=== PATIENT | female | born 1960 | race Hispanic/Latino ===

== ENCOUNTER 2017-08-16 23:26 | Observation (INO) | payer SELFPAY ==
--- NOTE | 2017-08-16 23:59 | CT ---
NONCONTRAST HEAD CT: History: Left sided facial droop, headache starting two hours ago. Comparison: None. Technique: Noncontrast head CT is performed from skull base to skull vertex. FINDINGS: No parenchymal hemorrhage. No extraaxial hematoma. No midline shift. Basilar cisterns are patent. Br ain volume age appropriate. Cortical gannon white matter differentiation is preserved. Ventricles and sulci are patent and symmetric. Calvarium is intact. Adequate aeration of the sinuses and mastoid air cells. IMPRESSION: No acute intracranial process. Results of study discussed with Kaycee Gibbons 08-16-17 at 11:48 p.m. POS: [facility]
[2017-08-17 00:16] LABS: Hematocrit 44.1 % (36.0-47.0); Mean Platelet Volume 7.4 fL (7.4-10.4); Red Blood Cell (RBC) Count 4.59 mill/uL (4.20-5.40); White Blood Cell (WBC) Count 7.1 thou/uL (4.8-10.8)
[2017-08-17 00:18] LABS: PTT 26.6 SEC (22.9-36.1); Prothrombin Time 13.2 SEC (12.0-14.7)
[2017-08-17 00:34] LABS: ALT (SGPT) 285 U/L (8-55); AST (SGOT) 150 U/L (5-34); Alkaline Phosphatase 92 U/L (40-150); Anion Gap 18 mmol/L (10-20); BUN (Urea Nitrogen) 7 mg/dL (9.8-20.1); Bilirubin, Total 0.3 mg/dL (0.2-1.2); CK (CPK) 99 U/L (29-168); Calc. Creatinine Clearance 0 mL/min (70-130); Calcium 9.4 mg/dL (7.8-10.44); Carbon Dioxide 21 mmol/L (22-29); Chloride 108 mmol/L (98-107); Estimated GFR-MDRD 88; Globulin 3.7 g/dL (2.4-3.5)
[2017-08-17 00:37] LABS: Troponin I Less than 0.010 ng/mL (< 0.028)
[2017-08-17 00:40] LABS: Neutrophil 27 % (42-75); Reactive Lymphocytes 3 % (0-10)
[2017-08-17] MEDS ORDERED: Aspirin 81 mg Enteric Coated Tablet ONE (00:41)
[2017-08-17 01:22] LABS: Bilirubin Negative (Negative); Blood, Urine Negative (Negative); Glucose, Urine (Dipstick) Negative (Negative); Ketone, Urine Negative (Negative); Nitrite Negative (Negative); Protein, Urine (Dipstick) Negative (Neg-Trace); Urobilinogen 0.2 mg/dL (0.2-1.0)
[2017-08-17 02:09] LABS: Amphetamine Not Detected (NotDetected); Methadone Not Detected (NotDetected); Methamphetamine Not Detected (NotDetected)
[2017-08-17 03:21] LABS: Troponin I 0.017 ng/mL (< 0.028)
[2017-08-17] MEDS ORDERED: Sodium Chloride 0.9% 1,000 ML IV SCH (03:43)
[2017-08-17] MEDS ORDERED: Ondansetron HCl/PF 4 MG/2 ML Vial IVP PRN ×2 (03:43→04:44)
[2017-08-17] MEDS ORDERED: Ondansetron ODT 4 MG TAB SL PRN (03:43)
[2017-08-17] MEDS ORDERED: Acetaminophen 325 MG TAB PO PRN (03:43)
[2017-08-17 03:50] VITALS: BMI 32.3
[2017-08-17] MEDS ORDERED: cloNIDine 0.1 MG TAB PO PRN (04:44)
[2017-08-17] MEDS ORDERED: Ondansetron ODT 4 MG TAB PO PRN (04:44)
[2017-08-17] MEDS ORDERED: Ketorolac Tromethamine 30 MG/ML VIAL IVP PRN (04:44)
[2017-08-17] MEDS ORDERED: Lorazepam 1 MG TAB PO PRN (04:44)
[2017-08-17] MEDS ORDERED: hydrALAZINE 20 MG/ML VIAL SLOW IVP PRN (04:44)
[2017-08-17] MEDS: Sodium Chloride 0.9% 1,000 ML IV SCH ×3 (05:20→23:10)
--- NOTE | 2017-08-17 05:35 | HP ---
DATE OF ADMISSION: 08/17/2017 PRIMARY CARE PHYSICIAN: Asha sousa. CHIEF COMPLAINT: Left neck pain and right facial numbness. HISTORY OF PRESENT ILLNESS: This is a 56-year-old female who presents to [facility], complaining of several day history of left neck and scalp pain. The patient state s the symptoms began approximately a week ago, persistent shooting pain into her scalp on the left s january above her ear. The patient has tried [id number]-tlm-[id number] remedies without relief. The patient als o complains of feeling her right facial numbness and feels like her right eye is rolling around in h er head uncontrollably. The patient denies any recent trauma, injury, fever, chills, or travel hist ory. The patient denies any difficulty with speech, swallowing, or ambulating. The patient states her mother had some similar type symptoms, but is unclear and unsure of what the diagnosis of her mo ther was. The patient denies any chronic medical conditions, any chronic medications, or any surgic la history. Patient denies any recent dental procedures. The patient does admit to drinking alcoho l most notably on the night of admission, drinking approximately 2 beers for stress relief. The pat janak does admit her increased stress with these symptoms and has had her daughter massaged her neck for relief of symptoms. The patient also stated drinking alcohol seemed to relieve the symptoms tem porarily. In the emergency room, the patient underwent general evaluation including CT imaging of t he brain showing no acute intracranial process. Screening metabolic survey showed mild hyperglycemi a and transaminitis of unclear etiology. The patient received aspirin 324 mg as well as intravenous normal saline x1 liter. Plasma alcohol level was noted at 118 with the rest of the urine drug scre en negative. PAST MEDICAL HISTORY: Reviewed and negative. PAST SURGICAL HISTORY: Reviewed and negative. CURRENT MEDICATIONS: Reviewed and negative. ALLERGIES: No known drug allergies. FAMILY HISTORY: No inheritable diseases per patient report. SOCIAL HISTORY: Patient is , accompanied with her in the hospital. Unemployed. Dri nks weekly, mainly beer. No tobacco or illicit drug use. REVIEW OF SYSTEMS: The following complete review of systems was negative, unless otherwise mentione d in the HPI or below: CONSTITUTIONAL: Weight loss or gain, ability to conduct usual activities. SKIN: Rash, itching. EYES: Double vision, pain. ENT/MOUTH: Nose bleeding, neck stiffness, pain, tenderness. CARDIOVASCULAR: Palpitations, dyspnea on exertion, orthopnea. RESPIRATORY: Shortness of breath, wheezing, cough, hemoptysis, fever or night sweats. GASTROINTESTINAL: Poor appetite, abdominal pain, heartburn, nausea, vomiting, constipation, or diar artemio. GENITOURINARY: Urgency, frequency, dysuria, nocturia. MUSCULOSKELETAL: Pain, swelling. NEUROLOGIC/PSYCHIATRIC: Anxiety, depression. ALLERGY/IMMUNOLOGIC: Skin rash, bleeding tendency. Otherwise, negative except as stated per the HPI. PHYSICAL EXAMINATION: VITAL SIGNS: On admission, blood pressure 145/86, pulse 75, respiratory rate 18, temperature 97.9 d egrees Fahrenheit, O2 saturation 97% on room air. GENERAL APPEARANCE: This is a 56-year-old female, alert and responsive and anxious appeari ng. HEENT: Pupils are equal, round, and reactive to light and accommodation. Extraocular muscles are i ntact. No scleral icterus. No conjunctival injection. Nares patent. OP is clear. Tongue in midl ine. No facial asymmetry appreciated on exam. NECK: Supple. No cervical adenopathy, no thyromegaly, no carotid bruits, no JVD appreciated. Cerv ical spine with full active and passive range of motion. Mild tenderness to palpation of the clinical audiologist ior cervical paravertebral musculature. CHEST: Lungs are clear to auscultation bilaterally. CARDIOVASCULAR: S1, S2, without noted murmur. ABDOMEN: Obese, soft, nontender, nondistended. Bowel sounds are positive in all four quadrants. T here is no hepatosplenomegaly, no abdominal bruits, no rebound or guarding appreciated. EXTREMITIES: Warm and dry with fair turgor. No clubbing, cyanosis, or asymmetric edema appreciated . Pulses are palpable distally at the dorsalis pedis, posterior tibial, and popliteal arteries bila terally. Capillary refill less than 2 seconds. NEUROLOGIC: Cranial nerves II through XII are grossly intact. No facial asymmetry appreciated. Ri ght hand dominant. Garnett Fixer strength equal bilaterally. Patient not observed ambulatory during this ex am. PERTINENT LABORATORY AND X-RAY FINDINGS: Sodium 143, potassium 3.7, chloride 108, CO2 of 21, BUN 7, creatinine 0.69, estimated GFR of 88, glucose ranging between 152 to 175, calcium 9.4, AST 150, ALT 285, alkaline phosphatase 92. Total CK of 99, troponin I negative x2. Albumin 4.3. CBC showed a white blood cell count of 7.1, hemoglobin 15, hematocrit 44, platelet count 207 with 27% neutrophils , 62% lymphocytes. PT 13.2, INR 1.0, PTT 26.6. Urinalysis negative. Urine drug screen negative. Plasma alcohol level 118. CT of the brain without contrast dated 08/16/2017 showed no acute intracr anial process. EKG dated 08/16/2017 by my interpretation shows sinus mechanism with heart rates in the 60s. Normal R-wave progression noted in the precordial leads. Normal axis. No acute ST-T wave changes appreciated. ASSESSMENT AND PLAN: 1. Facial paresthesias. Patient will be observed on the stroke unit. Questionable transient ische porsha attack. We will proceed with transient ischemic attack workup including MRI imaging of the brai n. Check carotid Doppler study to rule out focal stenosis. Clinical presentation is unclear. Cont inue aspirin 325 mg daily, Lipitor 40 mg p.o. at bedtime. 2. Myalgias. Start Toradol 30 mg IV q.6 hours p.r.n. 3. Transaminitis. Etiology unclear. Check hepatitis A, B, and C panel. Repeat LFTs. Consider ri ght upper quadrant abdominal ultrasound to rule out focal obstructive process. No current evidence to suggest bile duct obstruction. Questionable fatty liver disease. 4. Hyperglycemia. Check A1c level. No history of diabetes mellitus formally diagnosed. Serial Ac cu-Cheks before meals and at bedtime. 5. Alcohol abuse. Continue intravenous normal saline at 100 mL per hour. Patient counseled regard ing ongoing alcohol use in relation to current presentation. 6. Prophylaxis. Sequential compression devices while in bed. Pepcid 20 mg p.o. b.i.d. 7. Code status is FULL. Surrogate medical decision maker is patient's spouse.
[2017-08-17 08:41] LABS: Hematocrit 42.3 % (36.0-47.0); Mean Platelet Volume 8.3 fL (7.4-10.4); Red Blood Cell (RBC) Count 4.38 mill/uL (4.20-5.40); White Blood Cell (WBC) Count 5.3 thou/uL (4.8-10.8)
[2017-08-17 08:52] LABS: Hemoglobin A1c 6.4 % (4.0-6.0)
[2017-08-17] MEDS: Aspirin 325 mg Enteric Coated Tablet PO SCH (08:56)
[2017-08-17] MEDS: Famotidine 20 MG TAB PO SCH ×2 (08:56→20:07)
[2017-08-17] MEDS ORDERED: FLU VACC QS2017-18 36 mo. & older 0.5 ML SYRINGE IM ONE (09:00)
[2017-08-17] MEDS ORDERED: Aspirin 325 MG TAB PO SCH (09:00)
[2017-08-17 09:09] LABS: ALT (SGPT) 238 U/L (8-55); AST (SGOT) 119 U/L (5-34); Alkaline Phosphatase 79 U/L (40-150); Anion Gap 18 mmol/L (10-20); BUN (Urea Nitrogen) 8 mg/dL (9.8-20.1); Bilirubin, Total 0.3 mg/dL (0.2-1.2); Calc. Creatinine Clearance 153 mL/min (70-130); Calcium 8.4 mg/dL (7.8-10.44); Carbon Dioxide 19 mmol/L (22-29); Chloride 107 mmol/L (98-107); Estimated GFR-MDRD Greater than 90; Globulin 3.2 g/dL (2.4-3.5)
--- NOTE | 2017-08-17 09:45 | ULT ---
CAROTID ARTERIAL DOPPLER ULTRASOUND: DATE: 08/17/17 COMPARISON: None. HISTORY: Transient ischemic attack, assess for carotid artery disease. TECHNIQUE: Multiplanar Vogel scale sonographic imaging of the arterial structures of the neck obtained with colo r flow and spectral analysis. FINDINGS: Antegrade blood flow and normal arterial waveforms are documented within the carotid and vertebral s ystem bilaterally. VESSEL PSV (cm/sec) EDV (cm/sec) Right CCA 79 20 Right ICA 62 24 Right ECA 43 11 Left CCA 77 21 Left ICA 73 27 Left ECA 91 17 ICA/CCA ratio is 0.8 on the right and 1.0 on the left. IMPRESSION: No hemodynamically significant stenosis on the basis of sonographic velocity criteria. POS: [facility]
[2017-08-17 09:56] LABS: Band 1 % (5-11); Neutrophil 31 % (42-75)
--- NOTE | 2017-08-17 10:25 | MRI ---
BRAIN MRI WITHOUT CONTRAST: Date: 08/17/17 HISTORY: Transient ischemic attack. COMPARISON: None. TECHNIQUE: Brain MRI is performed without intravenous Gadolinium administration. Multisequential, multiplanar i maging is performed. FINDINGS: No hemorrhage on the axial gradient echo sequence. No parenchymal mass, mass effect, or midline shift. Brain volume, age-appropriate. Cortical gannon-whi te matter differentiation is preserved. Ventricles and sulci are patent and symmetric. Central arterial flow-voids are maintained. Absent restricted diffusion. Calvarium has a normal marrow signal intensity. Midline brain parenchymal structures are unremarkabl e. Adequate aeration of the sinuses and mastoid air cells. No significant white matter hyperintensity in the axial T2 or FLAIR sequence. IMPRESSION: Absence restricted diffusion. No infarct. POS: [facility]
[2017-08-17] MEDS ORDERED: Dextrose 5% in Water 1,000 ML IV PRN (13:31)
[2017-08-17] MEDS ORDERED: Dextrose 50% Abboject 50 ML SYRINGE SLOW IVP PRN (13:31)
[2017-08-17] MEDS ORDERED: HumaLOG 300 UNITS/3 ML VIAL SC PRN (13:31)
--- NOTE | 2017-08-17 14:43 | PDOC.EVN ---
Event Note - Event Note Event Note: pt seen and evaluated cont current meds hold statin due to elevated lfts f/u mri and neuro
[2017-08-17] MEDS: metFORMIN 500 MG TAB PO SCH (16:00)
[2017-08-17] MEDS: Acetaminophen 500 MG TAB PO PRN (20:07)
--- NOTE | 2017-08-17 20:29 | ULT ---
RIGHT UPPER QUADRANT ULTRASOUND: Date: 08-17-17 Comparison: None. History: Elevated transaminase levels, abnormal liver function test. Technique: Multiplanar grayscale sonographic imaging of the right upper quadrant obtained. FINDINGS: Imaged pancreatic parenchyma is unremarkable. The distal body and tail are obscured by bowel gas. The hepatic parenchyma is heterogeneous and echogenic suggesting hepatocellular disease, such as jordi atosis. This limits detailed assessment for focal liver lesion. Common bile duct measures in the 3 mm range, within normal limits. The right kidney measures 12.1 cm in craniocaudal dimension and demonstrates no stone, hydronephrosi s or mass lesion. Sonographic Carter's sign is negative. No gallbladder wall thickening or pericholecystic fluid. No g allstones are seen. IMPRESSION: 1. Increased echogenicity of the hepatic parenchyma suggests steatosis. 2. No evidence for cholelithiasis, cholecystitis or biliary dilatation. POS: [facility]
[2017-08-17] MEDS ORDERED: Atorvastatin Calcium 40 MG TAB PO SCH (21:00)
[2017-08-18 05:22] LABS: ALT (SGPT) 197 U/L (8-55); AST (SGOT) 94 U/L (5-34); Alkaline Phosphatase 75 U/L (40-150); Anion Gap 13 mmol/L (10-20); BUN (Urea Nitrogen) 9 mg/dL (9.8-20.1); Bilirubin, Total 0.4 mg/dL (0.2-1.2); Calc. Creatinine Clearance 166 mL/min (70-130); Calcium 8.4 mg/dL (7.8-10.44); Carbon Dioxide 23 mmol/L (22-29); Chloride 108 mmol/L (98-107); Cholesterol 174 mg/dl (< 200 Desired); Estimated GFR-MDRD Greater than 90; Globulin 3.1 g/dL (2.4-3.5); LDL Cholesterol, Calculated 109 mg/dL; Protein, Total 6.6 g/dL (6.0-8.3)
[2017-08-18] MEDS: Aspirin 325 mg Enteric Coated Tablet PO SCH (07:55)
[2017-08-18] MEDS: Famotidine 20 MG TAB PO SCH (07:55)
[2017-08-18] MEDS: metFORMIN 500 MG TAB PO SCH (07:55)
[2017-08-18 10:57] VITALS: BP 128/81; TEMP 98.5
[2017-08-18] MEDS: Sodium Chloride 0.9% 1,000 ML IV SCH (11:06)
--- NOTE | 2017-08-18 14:18 | DIS ---
DATE OF ADMISSION: 08/17/2017 DATE OF DISCHARGE: 08/18/2017 DISCHARGE DIAGNOSES: Right-sided facial numbness and weakness secondary to possibly stress induced episode, insomnia, fatty liver, new onset diabetes with a hemoglobin A1c of 6.4, alcohol use and tra nsaminitis secondary to fatty liver. DISCHARGE MEDICATIONS: The patient's discharge medications include aspirin 81 mg p.o. daily and met formin 500 p.o. b.i.d. STUDIES DONE THIS HOSPITAL STAY: Carotid Doppler, which showed no hemodynamically significant steno sis. MRI of the brain was normal. Echo showed ejection fraction of 55%. Ultrasound of the liver s howed fatty liver. CONSULTANTS ON THE CASE: Dr. Quiroz. BRIEF HOSPITAL COURSE: A 56-year-old pleasant lady came into the hospital with right-sided facial n umbness. Please refer to Dr. Brenner's H\T\P for further details. She was thoroughly evaluated for po ssible cerebrovascular accident. Dr. Quiroz was consulted. He reviewed all the labs and looked at th e imaging and said that it was possibly stress induced as the patient did not have any lower motor n euron involvement and MRI of the brain was normal. He recommended the patient follow up with psychi atrist as an outpatient for stress relieving techniques and medications if needed. Rest of the work up was negative. She is eating well. She is doing well. Right now, she is medically stable. Ultr asound of the liver showed fatty liver. Dietitian was consulted and she has been advised to eat a l ow fat diet. She understands all this. Right now, she is medically stable to be discharged with ou tpatient follow up with the PCP and psychiatrists. She is asked to come back to the hospital in otis e symptoms return. PHYSICAL EXAMINATION: VITAL SIGNS: The patient at the time of discharge, had a blood pressure of 128/81, temperature afeb rile, pulse was 62 and respirations 18. GENERAL: The patient was lying in bed in no apparent distress. HEENT: Atraumatic and normocephalic. Pupils are equally round and reactive to light. Extraocular movements are intact. Mucous membranes are moist. NECK: Supple. No JVD. CHEST: Breath sounds heard. No rales or rhonchi. HEART: S1 and S2. No murmurs or gallops. ABDOMEN: Soft and obese. EXTREMITIES: No cyanosis, clubbing or edema. Distal pulses present. NEUROLOGIC: Still has a right angle of the face weakness and some paraesthesias there. Can raise b oth eyebrows. No other cranial nerve deficits noted. No sensorimotor deficits noted. DISCHARGE CONDITION: Patient right now is medically stable to be discharged. Total time for this discharge took 35 minutes.
[2017-08-18] MEDS: Acetaminophen 500 MG TAB PO PRN (14:29)
--- NOTE | 2017-10-02 15:00 | EKG ---
Test Reason : STROKE ALERT Blood Pressure : / mmHG Vent. Rate : 067 BPM Atrial Rate : 067 BPM P-R Int : 162 ms QRS Dur : 080 ms QT Int : 392 ms P-R-T Axes : 057 004 032 degrees QTc Int : 414 ms Poor data quality, interpretation may be adversely affected Normal sinus rhythm Normal ECG Confirmed by LILIANE RODAS, TERRANCE Sanchez ([id number]), avid editor CECE JAMES ([id number]) on 10/02/2017 2:59:49 PM Referred By: Confirmed By:TERRANCE MOMIN MD
== END 2017-08-18 14:43 | disposition home or self-care (01) ==
LOC: ERS 23:26 → EDBD 08-17 02:20 → 2SE 08-17 02:20
PROVIDERS: ADMIT Family Medicine; ATTEND Family Medicine
DX: R20.2 Paresthesia of skin (principal); R53.1 Weakness; G47.00 Insomnia, unspecified; K76.0 Fatty (change of) liver, not elsewhere classified; E11.9 Type 2 diabetes mellitus without complications; R74.0 Nonspecific elevation of levels of transaminase and lactic acid dehydrogenase [LDH]; M54.2 Cervicalgia; M79.1 Myalgia; F10.10 Alcohol abuse, uncomplicated
CPT/HCPCS: 36415; 36416; 70450; 70551; 76705; 80053; 80061; 80074; 80306; 80307; 81003; 82553; 82607; 82746; 83036; 83735; 84443; 84484; 85007; 85025; 85027; 85610; 85730; 93005; 93306; 93880; 94760; 96361; 96374; G0378; J1885

== ENCOUNTER 2020-02-10 05:50 | Emergency (ER) | payer SELFPAY ==
[2020-02-10] MEDS ORDERED: Mag-Al 1200 mg/1200 mg/30 ML UDCUP ONE (06:14)
[2020-02-10] MEDS ORDERED: Lidocaine Viscous Sol 2% 15 ml UD Cup ONE (06:14)
[2020-02-10 06:36] LABS: #Basophils 0.1 thou/uL (0.0-0.2); #Eosinphils 0.1 thou/uL (0.0-0.7); #Lymphocytes 2.6 thou/uL (1.20-3.40); #Monocytes 0.5 thou/uL (0.11-0.59); %Basophils 2.2 % (0.0-1.0); %Eosinophils 1.4 % (0.0-10.0); %Lymphocytes 41.6 % (21.0-51.0); %Monocytes 7.3 % (0.0-10.0); %Neutrophils 47.5 % (42.0-75.0); Hemoglobin 15.1 g/dL (12.0-16.0); Mean Corpuscular HGB CONC 32.9 g/dL (32.0-36.0); Mean Corpuscular Hemoglobin 31.4 pg (27.0-31.0); Mean Corpuscular Volume 95.3 fL (78.0-98.0); Mean Platelet Volume 7.6 fL (7.4-10.4); Platelet Count 224 thou/uL (130-400); RBC Distribution Width 11.7 % (11.5-14.5); White Blood Cell (WBC) Count 6.2 thou/uL (4.8-10.8)
[2020-02-10 06:42] LABS: Bilirubin Negative (Negative); Blood, Urine Negative (Negative); Glucose, Urine (Dipstick) Negative (Negative); Leukocyte Negative (Negative); Nitrite Negative (Negative); Protein, Urine (Dipstick) Negative (Neg-Trace); Urobilinogen 0.2 mg/dL (Less than 2)
[2020-02-10 06:55] LABS: ALT (SGPT) 80 U/L (8-55); AST (SGOT) 54 U/L (5-34); Albumin 4.4 g/dL (3.5-5.0); Alkaline Phosphatase 70 U/L (40-110); Anion Gap 16 mmol/L (10-20); BUN (Urea Nitrogen) 10 mg/dL (9.8-20.1); Bilirubin, Total 0.5 mg/dL (0.2-1.2); Calc. Creatinine Clearance 0 mL/min (70-130); Calcium 9.2 mg/dL (7.8-10.44); Carbon Dioxide 23 mmol/L (22-29); Chloride 103 mmol/L (98-107); Estimated GFR-MDRD Greater than 90; Globulin 3.1 g/dL (2.4-3.5); Glucose 155 mg/dL (70-105); Lipase 31 U/L (8-78); Protein, Total 7.5 g/dL (6.0-8.3); Sodium 138 mmol/L (136-145)
[2020-02-10 07:03] LABS: Clarity Clear (Clear)
[2020-02-10 07:04] LABS: Pregnancy Test - Urine (BHCG) Negative (Negative); Pregu Control Background? CLEAR/WHITE (CLR/WHITE); Pregu Control Bar Appear? YES (CONTROL BAR)
== END 2020-02-10 07:24 | disposition home or self-care (01) ==
LOC: ERS 05:50
DX: B34.9 Viral infection, unspecified (principal); R10.84 Generalized abdominal pain
CPT/HCPCS: 36415; 80053; 81003; 81025; 83690; 85025; 99284

== ENCOUNTER 2020-09-19 08:21 | Outpatient (CLI) | payer OTHER ==
--- NOTE | 2020-09-19 10:16 | ULT ---
GALLBLADDER ULTRASOUND: HISTORY: Elevated liver function tests. FINDINGS: Real-time imaging of the right upper quadrant shows a normal-appearing gallbladder. The common duct is 3 mm. The technologist reports a negative ultrasound Carter's sign. The liver measures approxima tely 15 cm in length and is of increased echogenicity. The right kidney is normal in size and not obstructed. The pancreas is partially obscured. IMPRESSION: Fatty change of the liver. POS: [facility]
== END 2020-09-19 08:22 | disposition home or self-care (01) ==
LOC: BICULT 08:21
PROVIDERS: ATTEND Family Medicine
DX: R74.01 Elevation of levels of liver transaminase levels (principal); K76.0 Fatty (change of) liver, not elsewhere classified
CPT/HCPCS: 76705

== ENCOUNTER 2024-11-25 07:56 | Outpatient (CLI) | payer BC ==
[2024-11-25] MEDS ORDERED: Iopamidol 370 76% 100 ML VIAL ONE (10:54)
== END 2024-11-25 07:57 | disposition home or self-care (01) ==
LOC: CT 07:56
PROVIDERS: ATTEND Student in an Organized Health Care Education/Training Program
DX: R10.13 Epigastric pain (principal); K52.9 Noninfective gastroenteritis and colitis, unspecified
CPT/HCPCS: 36415; 74177; 82565

== ENCOUNTER 2025-09-08 16:55 | Emergency (ER) | payer BC ==
[2025-09-08 17:57] LABS: #Basophils Less than 0.03 10x3/uL (0.0-0.2); #Eosinophils 0.06 10x3/uL (0.0-0.7); #Monocytes 0.58 10x3/uL (0.11-0.59); #Neutrophils 3.11 10x3/uL (1.40-6.50); %Basophils 0.3 % (0.0-1.0); %Eosinophils 0.9 % (0.0-10.0); %Lymphocytes 41.2 % (21.0-51.0); %Monocytes 9.0 % (0.0-10.0); %Neutrophils 48.4 % (42.0-75.0); Hematocrit 45.2 % (36.0-47.0); Hemoglobin 15.4 g/dL (12.0-16.0); Mean Corpuscular Hemoglobin 30.7 pg (27.0-31.0); Mean Corpuscular Volume 90.2 fL (78.0-98.0); Platelet Count 228 10x3/uL (130-400); Red Blood Cell (RBC) Count 5.01 mill/uL (4.20-5.40); White Blood Cell (WBC) Count 6.43 10x3/uL (4.8-10.8)
[2025-09-08 18:15] LABS: ALT (SGPT) 99 U/L (Less than 34); AST (SGOT) 72 U/L (11-34); Albumin 4.2 g/dL (3.1-4.5); Alkaline Phosphatase 77 U/L (40-110); Anion Gap 11 mmol/L (10-20); BUN (Urea Nitrogen) 15 mg/dL (9.8-20.1); Bilirubin, Total 0.5 mg/dL (0.3-1.2); Calc. Creatinine Clearance 0 mL/min (70-130); Calcium 9.5 mg/dL (7.8-10.44); Carbon Dioxide 26 mmol/L (23-31); Chloride 103 mmol/L (98-107); Globulin 3.1 g/dL (2.4-3.5); Glucose 132 mg/dL (80-115); Lipase 36 U/L (8-78); Potassium 4.0 mmol/L (3.5-5.1); Sodium 136 mmol/L (136-145)
[2025-09-08] MEDS ORDERED: Ondansetron PF 4 MG/2 ML Vial ONE (18:35)
[2025-09-08 19:05] LABS: Glucose, Urine (Dipstick) Negative (Negative); Leukocyte Negative (Negative); Protein, Urine (Dipstick) Negative (Neg-Trace); Specific Gravity, Urine 1.010 (1.005-1.030)
[2025-09-08 19:07] LABS: Bacteria/HPF None Seen HPF (None Seen); RBC/HPF None Seen HPF (0-3); WBC/HPF None Seen HPF (0-3)
== END 2025-09-08 19:34 | disposition home or self-care (01) ==
LOC: ERS 16:55
DX: K29.70 Gastritis, unspecified, without bleeding (principal)
CPT/HCPCS: 74177; 80053; 81001; 83690; 85025; 93005; 96374; 96375; J2405